=== PATIENT | male | born 1995 | race African-American/Black ===

== ENCOUNTER 2018-08-04 08:41 | Day surgery (SDC) | payer OTHER ==
[~2018-08-04] VITALS: Ht 180.3 cm; Wt 83.5 kg
[2018-08-04] MEDS ORDERED: PROPOFOL 200 MG/20 ML VIAL As Ordered ONE (09:14)
[2018-08-04] MEDS ORDERED: ROCURONIUM BROMIDE 50 MG/5 ML VIAL As Ordered ONE (09:14)
[2018-08-04] MEDS ORDERED: MIDAZOLAM INJ 2 MG/2 ML VIAL (J2250) As Ordered ONE (09:14)
[2018-08-04] MEDS ORDERED: LIDOCAINE 2% INJ 100 MG/5 ML SDV (FOR ANES.) As Ordered ONE (09:14)
[2018-08-04] MEDS ORDERED: fentaNYL 250 MCG/5 ML INJECTION (J3010) As Ordered ONE (09:14)
[2018-08-04] MEDS ORDERED: LIDOCAINE 1% MDV 20ML VIAL As Ordered ONE (09:38)
[2018-08-04] MEDS ORDERED: BUPIVACAINE HCL 0.5% 10 ML VIAL As Ordered ONE (09:39)
[2018-08-04] MEDS ORDERED: GLYCOPYRROLATE INJ 0.2 MG/ML 2 ML VIAL As Ordered ONE (10:17)
[2018-08-04] MEDS ORDERED: ONDANSETRON 4MG/2ML VIAL (J2405) As Ordered ONE (10:17)
[2018-08-04] MEDS ORDERED: dexameTHASONE 4 MG/ML 1ML VIAL (J1100) As Ordered ONE (10:17)
[2018-08-04] MEDS ORDERED: KETOROLAC 60 MG/2 ML VIAL (J1885) As Ordered ONE (10:17)
[2018-08-04] MEDS ORDERED: ESMOLOL INJ 100MG/10ML VIAL As Ordered ONE (10:20)
[2018-08-04] MEDS ORDERED: SUGAMMADEX SODIUM 500 MG/5 ML VIAL (BRIDION) As Ordered ONE (10:24)
[2018-08-04] MEDS ORDERED: SUCCINYLCHOLINE 100 MG/5 ML SYRINGE (J0330) As Ordered ONE (10:53)
[2018-08-04] MEDS: PERCOCET 5MG/325MG TAB PO PRN ×2 (11:00→11:30)
[2018-08-04] MEDS ORDERED: ONDANSETRON 4MG/2ML VIAL (J2405) IV PRN (11:15)
[2018-08-04] MEDS ORDERED: HYDROcodone/APAP LIQUID 7.5-325MG 15ML UDC (LORTAB ELIXIR) PO PRN (11:15)
[2018-08-04] MEDS ORDERED: LR 1,000 ML IV SCH (11:15)
[2018-08-04] MEDS ORDERED: fentaNYL 100 MCG/2 ML INJECTION (J3010) IV PRN (11:15)
[2018-08-04 15:00] VITALS: BP 118/58
--- NOTE | 2018-08-04 18:08 | RO ---
DATE OF PROCEDURE: 08/04/2018 PREOPERATIVE DIAGNOSIS: Chronic tonsillitis and tonsillar hypertrophy. POSTOPERATIVE DIAGNOSIS: Chronic tonsillitis and tonsillar hypertrophy. OPERATION PERFORMED: Coblation tonsillectomy. SURGEON: Colton Eisenberg Jr, MD CONTRACT PROJECT MANAGER: ANESTHESIA: General via endotracheal tube PROCEDURE IN DETAIL: The left tonsil clamp was used to medialized the tonsil coblation, was used to remove the left tonsil out of the way and this was dissected out with the EVAC-70 wand. There was no bleeding. In a similar fashion, the right tonsil was also dissected out with no bleeding. The adenoids were inspected and they were not enlarged. The patient did have slightly elongated uvula with some redundant mucosa. At this point, the tonsillar fossa was irrigated and irritated but no further bleeding did occur. The patient was turned over to the loan originator for further evaluation. There were no problems from the surgery. No complications of the surgery. Estimated blood loss was trace and less than a mL.
== END 2018-08-04 16:33 | disposition home or self-care (01) ==
LOC: M SDC 08:41
PROVIDERS: ATTEND Otolaryngology
DX: J35.01 Chronic tonsillitis (principal); J31.0 Chronic rhinitis
CPT/HCPCS: 42826; 88302; J0330; J1100; J1885; J2250; J2405; J3010

== ENCOUNTER 2018-08-06 12:25 | Emergency (ER) | payer OTHER ==
[~2018-08-06] VITALS: Ht 180.3 cm; Wt 83.6 kg
[2018-08-06] MEDS ORDERED: LIDVISCBTL SS (12:33)
[2018-08-06] MEDS ORDERED: HYDR-3716 PO (12:33)
[2018-08-06] MEDS ORDERED: dexameTHASONE 4 MG/ML 1ML VIAL (J1100) PO ONE (13:15)
[2018-08-06] MEDS ORDERED: AMOXICILLIN SUSP 400 MG/5 ML ORAL SYRINGE *ED PO ONE (13:15)
[2018-08-06] MEDS ORDERED: ACETAMINOPHEN SUSP DYE FREE 160 MG/5 ML UDC PO ONE (13:15)
--- NOTE | 2018-08-06 13:50 | REP ---
Clinical: Swelling. Technique: AP and lateral views of the soft tissue neck. Findings: The airway is patent, midline and normal. The osseous structures are intact and normal. The subcutaneous tissues are unremarkable and without evidence for focal swelling or subcutaneous emphysema. Epiglottis appears normal. No foreign body. Impression: Normal soft tissue neck radiographs. Electronically Signed by Odin Davila MD 08/06/2018 01:42 P
[2018-08-06] MEDS ORDERED: AMOX400S2 PO (14:02)
[2018-08-06 14:07] VITALS: BP 131/60
== END 2018-08-06 14:30 | disposition home or self-care (01) ==
LOC: M ED 12:25
DX: J02.9 Acute pharyngitis, unspecified (principal)
CPT/HCPCS: 70360; 99283; J1100